=== PATIENT | male | born 1970 | race American Indian/Alaskan Native ===

== ENCOUNTER 2019-08-01 09:34 | Emergency (ER) | payer OTHER ==
[2019-08-01 09:42] VITALS: BP 115/79
[2019-08-01] MEDS ORDERED: MORPHINE 4 MG/1 ML INJ IV ONE (10:22)
[2019-08-01] MEDS ORDERED: SODIUM CHLORIDE 0.9% 1000 ML 1,000 ML IV ONE (10:22)
--- NOTE | 2019-08-01 10:36 | Emergency Department Report ---
HPI - General Chief Complaint: Urogenital-Male Time Seen by Provider: 08/01/19 10:21 - HPI HPI: 48-year-old -[place] male presents to the emergency department with a complaint of a 2 to 3-day history of left groin pain and left testicular pain. Patient denies any dysuria, hematuria, penile discharge. He denies any significant abdominal pain, nausea or vomiting, fever. He denies any past medical history. He has not taken anything for his symptoms prior to presentation. He does feel that the left side of his scrotum is swollen. No recent travel or sick contacts at home. ED Past Medical Hx - Past Medical History Hx Psychiatric Treatment: Yes - Social History Smoking Status: Current Every Day Smoker Substance Use Type: None - Medications Home Medications: Home Medications Medication Instructions Recorded Confirmed Last Taken Type HYDROcodone/APAP 5-325 [[place] 1 each PO Q6HR PRN #12 tablet 08/01/19 Unknown Rx 5/325] ED Review of Systems ROS: Stated complaint: PAIN GROIN Other details as noted in HPI Comment: All other systems reviewed and negative Constitutional: denies: chills, fever Respiratory: denies: cough, shortness of breath Cardiovascular: denies: chest pain Gastrointestinal: denies: nausea, vomiting Genitourinary: testicular pain. denies: dysuria, discharge Musculoskeletal: denies: back pain, arthralgia Neurological: denies: headache, weakness Physical Exam - Physical Exam Vital Signs: Vital Signs 08/01/19 09:41 Temperature 98.7 F Pulse Rate 80 Respiratory 18 Rate Blood Pressure 115/79 O2 Sat by Pulse 100 Oximetry Physical Exam: GENERAL: The patient is well-developed well-nourished. HENT: Normocephalic. Atraumatic. Patient has moist mucous membranes. EYES: Extraocular motions are intact. NECK: Supple. Trachea is midline. CHEST/LUNGS: Clear to auscultation. There is no respiratory distress noted. HEART/CARDIOVASCULAR: Regular. There is no tachycardia. ABDOMEN: Abdomen is soft, nontender. Patient has normal bowel sounds. There is no abdominal distention. SKIN: Skin is warm and dry. NEURO: The patient is awake, alert, and oriented. The patient is cooperative. The patient has no focal neurologic deficits. Normal speech. MUSCULOSKELETAL: There is no tenderness or deformity. There is no limitation range of motion. : There is tenderness to palpation to the left scrotum and testicle, as well as the left inguinal region. There is a fullness felt to the left side of the scrotum. +2/4 femoral pulses bilaterally. ED Course Vital Signs 08/01/19 09:41 Temperature 98.7 F Pulse Rate 80 Respiratory 18 Rate Blood Pressure 115/79 O2 Sat by Pulse 100 Oximetry - Consultations Consultation #1: 08/01/19 12:[address] Madsen, the vascular surgeon on-call, regarding the incidental finding on the CT of the abdomen and pelvis with IV contrast that shows a greater than 75% infrarenal aortic stenosis secondary to plaque buildup. Dr Madsen agrees that there is nothing emergent to do regarding this finding while in the emergency department and he is happy to see the patient in the clinic tomorrow or next week regarding follow-up of this finding. ED Medical Decision Making - Lab Data Result diagrams: 08/01/19 Unknown 08/01/19 Unknown - Radiology Data Radiology results: report reviewed, image reviewed interpreted by me: Abdominal x-ray shows nonspecific nonobstructive bowel gas US testicular doppler comp INDICATION / CLINICAL INFORMATION: groin and left testicular pain. Doppler ultrasound and spectral analysis was performed on both testicles COMPARISON: None available. FINDINGS: A left-sided hydrocele is present with septations. The testicles are normal in size and appearance. Normal Doppler flow seen in both testicles. IMPRESSION: Septated left-sided hydrocele. Normal Doppler flow seen in both testicles CT ABDOMEN AND PELVIS WITH CONTRAST INDICATION / CLINICAL INFORMATION: MAIN: groin and testicular pain, scrotal fluid collectio left sided pain see ultrasound 100 ml Omni 300 pain x 3 days. TECHNIQUE: Axial CT images were obtained through the abdomen and pelvis after 100 mL Omnipaque [address] scans at this location are performed using CT dose reduction for ALARA by means of automated exposure control. COMPARISON: Abdominal radiograph from earlier the same day FINDINGS: LOWER CHEST: Mild dependent atelectatic changes. LIVER: No significant abnormality. BILIARY SYSTEM: No significant abnormality. PANCREAS: Coarse calcifications at the posterior aspect of the pancreatic head SPLEEN: No significant abnormality. ADRENALS: No significant abnormality. KIDNEYS and URETERS: No significant abnormality. STOMACH / BOWEL: No significant abnormality. The appendix is normal. PERITONEUM: No free fluid. No free air. No fluid collection. LYMPH NODES: No adenopathy. VASCULAR STRUCTURES: Large calcified plaque in the infrarenal abdominal aorta causes high-grade focal stenosis with greater than 75% luminal narrowing, as shown on series 2 image 73. No other significant focal stenotic lesion or aneurysm of the aorta and iliac arteries. The celiac, SMA, LIU, and renal arteries are patent without significa nt atherosclerotic plaque or focal stenotic lesion identified. URINARY BLADDER: No significant abnormality. REPRODUCTIVE ORGANS: Large left hydrocele noted. ADDITIONAL FINDINGS: None. SKELETAL SYSTEM: No significant abnormality. IMPRESSION: 1. No acute abnormality in the abdomen and pelvis. 2. High-grade focal stenosis in the infrarenal abdominal aorta caused by densely calcified plaque. 3. Clustered coarse calcifications at the posterior margin of the pancreatic head. Correlate for history of previous episodes of pancreatitis. - Medical Decision Making This patient presents to the emergency department with a 3-day history of left- sided testicular and scrotal pain, as well as some swelling in this area. He also has some pain in the left inguinal region/groin. No difficulty with urination or any dysuria. On examination there is some fullness felt to the left side of the scrotum. There is no tenderness to palpation of the abdomen, which is soft and nondistended. Abdominal x-ray shows nonspecific nonobstructive bowel gas. A testicular Doppler ultrasound was completed that does not show any torsion but does show a septated left-sided hydrocele. A CT scan of the abdomen and pelvis with IV contrast was done to further evaluate this fluid collection on ultrasound and make sure there was no sign of any hernia. There was no acute abnormality seen in the abdomen or pelvis but incidentally the patient was found to have a high-grade focal stenosis in the infrarenal abdominal aorta with greater than 75% luminal narrowing. For this reason I spoke with the vascular surgeon on-call and the patient is safe for outpatient discharge and the vascular surgeon is even willing to see the patient tomorrow in the clinic. He will also be given a referral for urology to follow- up regarding his testicular pain and the hydrocele. Vital signs stable throughout his ED course. The patient will return to the ER with any worsening of his symptoms or any acute distress. Critical Care Time: No Critical care attestation.: If time is entered above; I have spent that time in minutes in the direct care of this critically ill patient, excluding procedure time. ED Disposition Clinical Impression: Stenosis of infrarenal abdominal aorta due to arteriosclerosis, Testicular pain, left Hydrocele Qualifiers: Hydrocele type: unspecified Qualified Code(s): N43.3 - Hydrocele, unspecified Disposition: DC-01 TO HOME OR SELFCARE Is pt being admited?: No Condition: Stable Instructions: Aortic Stenosis (ED), Hydrocele (ED), Testicle Pain (ED) Additional Instructions: Please follow-up with a vascular surgeon regarding the infrarenal aortic stenosis that was found on your CT scan. I have given you a referral for Dr. Madsen who says that he will be happy to see you as a patient in the clinic either tomorrow or next week. Call the office in the morning to schedule an appointment. I have also given you a referral for a local urologist, Dr. Boyd, to follow-up regarding the hydrocele and testicular pain. Please try and quit smoking. Return to the emergency department with any worsening of your symptoms or any acute distress. You have been prescribed a medication that is sedating and therefore should not be taken prior to driving, working, and responsible for children and in no way should be mixed with alcohol of any quantity. Prescriptions: HYDROcodone/APAP 5-325 [[place] 5/325] 1 each PO Q6HR PRN #12 tablet PRN Reason: Pain Referrals: JESS MADSEN MD [Staff Physician] - 08/02/19 (Call the office in the morning for an appointment tomorrow with Dr Madsen. ) ROSE BOYD MD [Staff Physician] - 2-3 Days [facility] [Primary Care Provider] - 2-3 Days Time of Disposition: 12:44
[2019-08-01 11:06] LABS: Basophils % (Auto) 0.6 % (0.0-1.8); Eosinophils # (Auto) 0.1 K/mm3 (0.0-0.4); Eosinophils % (Auto) 2.1 % (0.0-4.3); Hematocrit 42.1 % (35.5-45.6); Hemoglobin 14.3 gm/dl (11.8-15.2); Lymphocytes # (Auto) 1.6 K/mm3 (1.2-5.4); Lymphocytes % (Auto) 26.9 % (13.4-35.0); Mean Corpuscular HGB Conc 34 % (32-34); Mean Corpuscular Volume 98 fl (84-94); Monocytes # (Auto) 0.4 K/mm3 (0.0-0.8); Platelet Count 321 K/mm3 (140-440); Red Blood Count 4.32 M/mm3 (3.65-5.03); Red Cell Distribution Width 13.9 % (13.2-15.2)
--- NOTE | 2019-08-01 11:23 | Ultrasound Report ---
US testicular doppler comp INDICATION / CLINICAL INFORMATION: groin and left testicular pain. Doppler ultrasound and spectral analysis was performed on both testicles COMPARISON: None available. FINDINGS: A left-sided hydrocele is present with septations. The testicles are normal in size and appearance. N ormal Doppler flow seen in both testicles. IMPRESSION: Septated left-sided hydrocele. Normal Doppler flow seen in both testicles Signer Name: Arturo Thomas MD FACYong Signed: 08/01/2019 11:19 AM Workstation Name: [id number]
[2019-08-01 11:25] LABS: BUN/Creatinine Ratio 10; Blood Urea Nitrogen 9 mg/dL (9-20); Calcium 10.1 mg/dL (8.4-10.2); Hemolysis Index 11
--- NOTE | 2019-08-01 11:48 | XRay Report ---
ABDOMEN 2 VIEWS INDICATION / CLINICAL INFORMATION: Abd pain. COMPARISON: None available. FINDINGS: Normal bowel gas pattern. No evidence of obstruction or pneumoperitoneum. Calcification is seen to th e right of the L2 vertebral body and the exact anatomic location cannot be determined on this exam Signer Name: Arturo Thomas MD FACYong Signed: 08/01/2019 11:44 AM Workstation Name: [id number]
--- NOTE | 2019-08-01 12:12 | Cat Scan Report ---
CT ABDOMEN AND PELVIS WITH CONTRAST INDICATION / CLINICAL INFORMATION: MAIN: groin and testicular pain, scrotal fluid collectio left sided pain see ultrasound 100 ml Omni 3 00 pain x 3 days. TECHNIQUE: Axial CT images were obtained through the abdomen and pelvis after 100 mL Omnipaque [address] scans at this location are performed using CT dose reduction for ALARA by means of automated exposure control. COMPARISON: Abdominal radiograph from earlier the same day FINDINGS: LOWER CHEST: Mild dependent atelectatic changes. LIVER: No significant abnormality. BILIARY SYSTEM: No significant abnormality. PANCREAS: Coarse calcifications at the posterior aspect of the pancreatic head SPLEEN: No significant abnormality. ADRENALS: No significant abnormality. KIDNEYS and URETERS: No significant abnormality. STOMACH / BOWEL: No significant abnormality. The appendix is normal. PERITONEUM: No free fluid. No free air. No fluid collection. LYMPH NODES: No adenopathy. VASCULAR STRUCTURES: Large calcified plaque in the infrarenal abdominal aorta causes high-grade focal stenosis with greater than 75% luminal narrowing, as shown on series 2 image 73. No other significan t focal stenotic lesion or aneurysm of the aorta and iliac arteries. The celiac, SMA, LIU, and renal arteries are patent without significant atherosclerotic plaque or focal stenotic lesion identified. URINARY BLADDER: No significant abnormality. REPRODUCTIVE ORGANS: Large left hydrocele noted. ADDITIONAL FINDINGS: None. SKELETAL SYSTEM: No significant abnormality. IMPRESSION: 1. No acute abnormality in the abdomen and pelvis. 2. High-grade focal stenosis in the infrarenal abdominal aorta caused by densely calcified plaque. 3. Clustered coarse calcifications at the posterior margin of the pancreatic head. Correlate for his tory of previous episodes of pancreatitis. Signer Name: Harry Latham MD Signed: 08/01/2019 12:08 PM Workstation Name: [id number]
[2019-08-01 13:51] LABS: Bilirubin,Urine NEG (Negative); Blood,Urine NEG (Negative); Color,Urine Straw (Yellow); Mucus,Urine FEW /HPF; Protein,Urine <15 mg/dL mg/dL (Negative); Urobilinogen,Urine < 2.0 mg/dL (<2.0)
[2019-08-01 13:59] LABS: WBC,Urine < 1.0 /HPF (0.0-6.0)
== END 2019-08-01 13:18 | disposition home or self-care (01) ==
LOC: ED 09:34
DX: I70.0 Atherosclerosis of aorta (principal); N43.3 Hydrocele, unspecified; N50.812 Left testicular pain; F17.200 Nicotine dependence, unspecified, uncomplicated; Z79.899 Other long term (current) drug therapy
CPT/HCPCS: 36415; 74019; 74177; 80048; 81001; 85025; 93975; 96374; 99285; J2270; J7030; Q9967